=== PATIENT | male | born 1985 | race Caucasian/White ===

== ENCOUNTER → 2023-06-07 | Day surgery (SDC) | payer OTHER ==
[~2023-06-07] MED LIST: BENZOCAINE/TETRACAINE/BUTAMBEN AERO SPRAY 56 GM CAN ONE; FENTANYL CITRATE/PF 100MCG/2 ML INJ ONE; HYDROXYZINE HCL10 MG PO; LACTATED RINGER'S 1,000 ML ONE; LIDOCAINE HCL 2% LOCAL INJ 5 ML SDV VIAL INJ ONE; MIDAZOLAM HCL 2 MG/2 ML VIAL ONE; MULTI-VITAMIN1 EACH PO; OMEPRAZOLE40 MG PO; PROPOFOL IV EMULSION 10 MG/ML 20 ML VIAL ONE; SERTRALINE HCL50 MG PO; VITAMIN D31250 MCG
[2023-06-07 11:50] VITALS: TEMP 97.5
[2023-06-07 12:05] VITALS: BP 124/97; PULSE 75; RESP 16; O2SAT 97
== END | disposition home or self-care (01) ==
LOC: OR 09:59
PROVIDERS: ATTEND Internal Medicine Gastroenterology
DX: Z12.11 Encounter for screening for malignant neoplasm of colon (principal); K29.70 Gastritis, unspecified, without bleeding; K22.10 Ulcer of esophagus without bleeding; K21.9 Gastro-esophageal reflux disease without esophagitis; K44.9 Diaphragmatic hernia without obstruction or gangrene; K64.8 Other hemorrhoids; Z87.11 Personal history of peptic ulcer disease; Z71.3 Dietary counseling and surveillance; J41.0 Simple chronic bronchitis; M54.2 Cervicalgia; F31.9 Bipolar disorder, unspecified; F43.10 Post-traumatic stress disorder, unspecified; F41.9 Anxiety disorder, unspecified; F17.210 Nicotine dependence, cigarettes, uncomplicated; Z71.6 Tobacco abuse counseling; Z01.810 Encounter for preprocedural cardiovascular examination; Z79.899 Other long term (current) drug therapy; Z68.26 Body mass index [BMI] 26.0-26.9, adult; Z86.16 Personal history of COVID-19; Z80.0 Family history of malignant neoplasm of digestive organs
CPT/HCPCS: 43239; 45378; 93005; C9113; J2001; J2250; J2704; J3010; J7121